=== PATIENT | female | born 1965 | race Caucasian/White ===

== ENCOUNTER 2018-01-20 06:06 | Day surgery (SDC) | payer OTHER ==
[2018-01-19 13:15] VITALS: BMI 28.1
[2018-01-20] MEDS ORDERED: DEXAMETHASONE SOD PHOSPHATE 4 MG/1 ML VIAL ONE (07:22)
[2018-01-20] MEDS ORDERED: LIDOCAINE HCL 2% (20ML MULTI-DOSE VIAL) NR ONE (07:23)
[2018-01-20] MEDS ORDERED: BUPIVACAINE HCL/PF 0.5% (5MG/ML) 10 ML VIAL ONE (07:23)
[2018-01-20] MEDS ORDERED: LIDOCAINE HCL/PF 2% SDV 5ML VIAL ONE (07:37)
[2018-01-20] MEDS ORDERED: PROPOFOL 20 ML ONE ×4 (07:37)
[2018-01-20] MEDS ORDERED: MIDAZOLAM HCL 2 MG/2 ML SINGLE DOSE VIAL ONE ×2 (07:38)
[2018-01-20] MEDS ORDERED: LIDOCAINE HCL 2% (50ML VIAL) PNB ONE (08:06)
[2018-01-20] MEDS ORDERED: BUPIVACAINE HCL/PF 0.5% (5MG/ML) 10 ML VIAL IJ ONE (08:06)
[2018-01-20] MEDS ORDERED: LIDOCAINE HCL 2% JELLY (5 ML/TUBE) ONE (08:10)
[2018-01-20] MEDS ORDERED: BENZOIN/ALOE VERA/STORAX/TOLU 58 ML BOTTLE ONE (09:05)
[2018-01-20] MEDS ORDERED: oxyCODONE HCL 5 MG TABLET PO PRN ×2 (09:43)
[2018-01-20] MEDS ORDERED: KETOROLAC TROMETHAMINE 30 MG/1 ML VIAL IVPUSH ONE (09:43)
[2018-01-20] MEDS ORDERED: ONDANSETRON 4 MG/2 ML VIAL IVPUSH PRN (09:43)
[2018-01-20] MEDS ORDERED: LACTATED RINGERS SOLUTION 1,000 ML IV SCH (09:45)
[2018-01-20] MEDS ORDERED: KETOROLAC TROMETHAMINE 30 MG/1 ML VIAL ONE (10:05)
--- NOTE | 2018-01-20 10:54 | OP ---
DATE OF OPERATION: 01/20/2018 DATE OF DICTATION: 01/20/[address] Garc[address] Attendant Dr. Bellamy PREOPERATIVE DIAGNOSIS: Painful right foot bunion with painful hammertoes 2, 3 and 5 and 5th tailors bunion. POSTOPERATIVE DIAGNOSIS: Painful right foot bunion with painful hammertoes 2, 3 and 5 and 5th tailors bunion. PROCEDURE: Right foot Dusty bunionectomy with screw fixation 2.4 mm x 16mm hammertoe repair arthroplasty of digits 2, 3 and 5 and tailor bunionectomy of right foot. ANESTHESIA: IV MAC with local. HEMOSTASIS: Pneumatic ankle tourniquet, 250 mmHg, to the right ankle. ESTIMATED BLOOD LOSS: 10cc The patient was brought to the operating room and placed supine on the operating room table. After adequate IV sedation a local infiltrative block was administered to the right foot utilizing 1:1 mixture of 2% lidocaine plain and 0.5% Marcaine plain with a total of 29 mL used. A well padded ankle tourniquette was applied to the right ankle. The right foot was then prepped, scrubbed and draped in the usual aseptic fashion. Upon exsanguination of the right foot with an Esmarch bandage the pneumatic ankle tourniquet was inflated to 250 mmHg. Surgery began in the following manner. Attention was directed to the dorsomedial aspect of the right 1st metatarsal where a linear incision was made at the dorsomedial aspect of the 1st metatarsophalangeal joint approximately 6 cm in length. The incision was then deepened through subcutaneous tissue using sharp and blunt dissection. Care was taken to identify and retract all vital neural and vascular structures. All bleeders were cauterized and ligated as necessary. Next a inverted "L" capsulotomy was performed at the dorsomedial aspect of the 1st metatarsophalangeal joint. The periosteal and capsular structures were then carefully dissected free of the osseous attachments and reflected medially and dorsally exposing the head of the 1st metatarsal at the operative site. A Mcglamary elevator was utilized to liberate the head of the metatarsal plantar aspect. It was noted that the head was slightly hypertrophied at the medial and dorsal aspects. Next utilizing a sagittal bone saw the medial prominence was resected and pulled from the operative field. The bone saw was then used to remove the dorsal prominence at the metatarsal head. The foot was then put on its side. Attention was then directed to the medial aspect of the 1st metatarsal head where utilizing a sagittal saw a through-and- through V-type osteotomy was created. The apex of the osteotomy pointed distally with the arms pointing proximal plantarly and proximal dorsally. Upon completion of the osteotomy the capital fragment was then distracted and shifted about laterally into a corrected position and impacted upon the 1st metatarsal shaft. Next using standard A-O principals and techniques a 2.0tgt32oc lag screw was driven across the osteotomy site with excellent compression noted. Attention was then directed to the remaining medial bone shelf which was resected using a sagittal bone saw and passed from the operative site. All rough edges and prominences were then resected and smoothed using a bur. Correction of the deformity was assessed at this time and noted to be excellent. Surgical site was then irrigated with normal saline solution. Attention was then directed to the 2nd digit of the right foot where two converging semi-elliptical incision were created over the PIPJ. The incision was deepened through subcutaneous tissue with care being taken to identify and retract all vital neural and vascular structures. All bleeders were ligated and cauterized as necessary. At this time a transverse tenotomy was performed to the proximal interphalangeal joint of the 2nd digit of the right foot and the proximal phalanx was then freed of its capsular and ligamentous attachments and the extensor tendon was retracted proximally. Utilizing the oscillating bone saw the head of the proximal phalanx was resected and passed from the operative site. The exact same procedure was done on toe number 3. Attention was then directed to the 5th digit of the right foot where two converging longitudinal semi-elliptical incision was made from the proximal lateral aspect to the distal medial aspect at the PIPJ dorsally. Incision was deepened through the subcutaneous tissue with care being taken to identify and retract all vital neural and vascular structures. Bleeders were ligated and cauterized as necessary. At this time a transverse tenotomy was performed to the proximal interphalangeal joint of the 5th digit of the right foot. The head of the proximal phalanx was then freed of its capsular and ligamentous attachments and the extensor tendon was retracted proximally. Utilizing an oscillating bone saw the head of the proximal phalanx was resected in a slanted fashion going from proximal lateral to distal medial. The head of the proximal phalanx was resected and passed from the operative site. All wounds were then flushed with copious amounts of normal saline antibiotic solution. Attention was then directed to dorsal aspect of the metatarsophalangeal joint of the 5th metatarsal where a linear incision was made at the dorsal lateral aspect of the 5th MPJ. Incision was then deepened through the subcutaneous tissue with care being taken to identify and retract all vital neural and vascular structures. All bleeders were cauterized and ligated as necessary. At this time a inverted "L" capsulotomy was made over the lateral dorsal 5th MPJ exposing bone laterally and dorsally. utilizing a sagittal bone saw the lateral prominence at the 5th metatarsal head was resected and pulled from the operative field. Bone saw was also used to remove the dorsal prominence at the 5th metatarsal head of the right foot. At this time attention was then directed to the 1st metatarsal incision where the periosteal and capsular structures were reapproximated using 2.0, 3.0 , 4-0 Vicryl. 5.0 vicryl was utilized in a Subcuticular fashion used in a running fashion. Attention was then directed to the 2nd, 3rd and 5th digits where all extensor tendons were reapproximated using 3-0 Vicryl in simple suture fashion and skin reapproximated with 4-0 nylon in simple suture fashion. At this time attention was directed to the incision at the 5th MPJ where periosteal and capsular structures were reapproximated using 3.0, 4-0 Vicryl. Subcuticular closure was done 5.0 Vicryl. The incision sites were infiltrated with approximately 10 mL of postoperative dexamethasone and lidocaine in a 50:50 mixture. Incisions 1st and 5th bunion area were dressed with Steri-Strips. Betadine soaked Adaptic and sterile gauze was applied. compressive dressing consisting of Jeramy and Coban. The pneumatic ankle tourniquet was deflated and a prompt hyperemic response was noted to all digits of the right foot. The patient tolerated the procedure and anesthesia well and left the operating room to the recovery room in good condition with vital signs stable and neurovascular status intact to the right foot. Capillary fill time was instantaneous to all digits of the right foot. SABAS Mcdaniel/[id number] MTDD
[2018-01-20 11:03] VITALS: TEMP 97.6
--- NOTE | 2018-01-20 11:45 | OP ---
Operative Note - Note: Operative Date: 01/20/18 Pre-Operative Diagnosis: hallux valgus, hammer toe 2,3,5, tailors bunion all right foot Operation: saurabh bunionectomy [id number] screw fixation, arthroplasty PIPJ 2,3, 5, partial met head resection 5th metatarsal right Findings: hypertrophic bone and soft tissue Implants: 2.4mm x 16mm osteomed lag screw Post-Operative Diagnosis: Same as Pre-op Surgeon: Sara García Telehealth Nurse: Zachariah Bellamy Anesthesia: Local, MAC Specimens Removed: bone and soft tissue Estimated Blood Loss (mls): 15 Operative Report Dictated: Yes
[2018-01-20 12:18] VITALS: BP 140/80; PULSE 50
--- NOTE | 2018-01-21 18:34 | PATH ---
Surgical Pathology Report Patient Name: JOE HENDERSON [facility]. Rec. #: [id number] /Age/Gender: 1965 (Age: 52) / F Account: [id number] Location: [facility] [place] [facility] Taken: 01/20/2018 Received: 01/20/2018 Reported: 01/21/2018 Physicians: Sara García DPM Specimen(s) Received BONE AND TISSUE FROM RIGHT FOOT Clinical History Hallux valgus, other hammer toe, bunionette Final Diagnosis FOOT, RIGHT, BONE AND TISSUE, BUNIONECTOMY AND HAMMER TOE CORRECTION: BONE WITH DEGENERATIVE CHANGES. UNREMARKABLE SKIN. Electronically Signed Thea Lyles M.D. Gross Description Received in formalin labeled "bone and tissue from right foot," is a 3.3 x 2.5 x 0.4 cm aggregate of muller bone and skin fragments. Division Field Inspector sections are submitted in one cassette, following decalcification. /01/20/2018 saudi01/20/2018
== END 2018-01-20 13:31 | disposition home or self-care (01) ==
LOC: JASU-SURG 06:06
PROVIDERS: ATTEND Podiatrist Foot Surgery
PROC: 0QBN0ZZ Excision of Right Metatarsal, Open Approach (ICD-10-PCS; 2018-01-20)
PROC: 0SRP0JZ Replacement of Right Toe Phalangeal Joint with Synthetic Substitute, Open Approach (ICD-10-PCS; principal; 2018-01-20 07:30)
PROC: 0QBQ0ZZ Excision of Right Toe Phalanx, Open Approach (ICD-10-PCS; 2018-01-20 07:30)
DX: M20.41 Other hammer toe(s) (acquired), right foot (principal); M20.11 Hallux valgus (acquired), right foot; M21.621 Bunionette of right foot
CPT/HCPCS: 73630-TC-RT-FY; 88305-TC; 88311-TC; 94760